=== PATIENT | male | born 1985 | race African-American/Black ===

== ENCOUNTER 2022-11-01 10:00 | Emergency (ER) | payer OTHER, SELFPAY ==
--- NOTE | ~2022-11-01 | XR_ITS ---
XR chest 2V 11/01/2022 10:43 Indication: Shortness of breath with rapid heart rate Procedure: 2 view chest Comparison: No prior studies for comparison. Findings: There is bilateral perihilar and right basilar airspace disease. Small right pleural effusi on. Cardiomegaly. No pneumothorax. No acute osseous abnormality. Impression: 1: Bilateral perihilar and right basilar airspace disease may represent pneumonia or edema. 2: Cardiomegaly. 3: Right pleural effusion. Reviewed, dictated and finalized at location A. OR SOFTWARE DEVELOPER Impression: 1: Bilateral perihilar and right basilar airspace disease may represent pneumon ia or edema. 2: Cardiomegaly. 3: Right pleural effusion.
--- NOTE | 2022-11-01 10:07 | ED.GENADULT ---
HPI - General Adult General Chief complaint: Shortness of Breath/Dyspnea Stated complaint: sob Time Seen by Provider: 11/01/22 10:07 Source: patient Mode of arrival: ambulatory Limitations: no limitations History of Present Illness HPI narrative: 36-year-old male patient presents to the [facility] with complaints of shortness of breath for the past 2 weeks. Patient states that last weekend he was seen in the ER and was early and was told that he had some fluid on his lungs and was given some furosemide to help get the fluid off. Patient was referred to his primary doctor for follow-up. Patient states he has never had any history with blood pressure. Patient states he has always been borderline but never diagnosed with high blood pressure. Patient currently does not have a primary care physician. 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 Patient denies any fevers, body aches, chills or any flu-like symptoms. Patient states he was a smoker and quit in July of 2022. Patient denies any swelling to the extremities that he is aware of. Patient denies any chest pain at this time. Related Data Home Medications Medication Instructions Recorded Confirmed furosemide 20 mg tablet 20 mg PO DAILY 11/01/22 11/01/22 Allergies Allergy/AdvReac Type Severity Reaction Status Date / Time No Known Allergies Allergy Verified 11/01/22 10:37 Review of Systems Review of Systems: CONSTITUTIONAL: Denies fever, chills, or sweats. EYES: Denies visual changes, redness, or discharge. ENT: Denies rhinorrhea, congestion, sore throat, or otalgia. CARDIOVASCULAR: Denies chest pain, palpitations, or edema. RESPIRATORY: Denies cough , positive dyspnea. GASTROINTESTINAL: Denies abdominal pain, nausea, vomiting, or diarrhea. GENITOURINARY: Denies dysuria or hematuria. SKIN: Denies rash or itching. MUSCULOSKELETAL: Denies back pain, joint pain, or myalgia. NEUROLOGIC: Denies headache, numbness, or weakness. PSYCHIATRIC: Denies anxiety or depression. PMFSH Comments At the time of my signature I agree with nursing past medical history, surgical, social, and family history. There is no relevant family history pertinent to the presenting complaint. Exam Narrative: GENERAL: Well-appearing, well-nourished, and in no acute distress. HEAD: Normocephalic, atraumatic. EYES: PERRLA and EOMI. ENT: Nares with erythema and edema noted bilateral, no rhinorrhea or epistaxis. Mucous membranes moist. posterior pharynx with no erythema, tonsillar edema, exudates or lesions present. Bilateral TMs are clear no erythema or foreign bodies the canal. NECK: Supple. No lymphadenopathy CHEST: Clear to auscultation. No respiratory distress. HEART: Regular rate and rhythm. No murmur heard. Slightly muffled heart tones noted. Normal peripheral pulses. ABDOMEN: Soft, nontender, nondistended, normal active bowel sounds. EXTREMITIES: Normal range of motion. 1+ pitting edema noted to bilateral lower extremities. SKIN: Warm, dry, no rash. NEURO: No focal deficits. Alert and oriented x3. Course Course Level of Care: Express Care Visit Reevaluation(s) Reevaluation #1: Discussed with patient that based on his x-ray results as well as his EKG and physical exam , I am concerned he might have the beginnings of congestive heart failure which could be causing the shortness of breath. I would advise that patient be sent to the emergency department for further evaluation including blood work on possible IV medications to help with his symptoms. Patient is in agreement with this plan of care. Will call over to enter seen in the ER to transfer patient therapy. Offered to send patient by EMS however he has declined and states he will drive himself. Given the fact the patient does not have any acute chest pain and his EKG does not show any acute coronary artery issues I think that is okay to let him drive at this time. Date: 11/01/22 Time: 11:04 Vital Signs Vi
--- NOTE | 2022-11-01 10:31 | ECG_ITS ---
Measurements Intervals [place] Rate: 106 P: 58 UT: 144 QRS: 14 QRSD: 92 T: 77 QT: 351 QTc: 466 Interpretive Statements SINUS TACHYCARDIA POSSIBLE LEFT ATRIAL ENLARGEMENT DELAYED PRECORDIAL R/S TRANSITION NONSPECIFIC T-WAVE ABNORMALITY- DIFFUSE LEADS BORDERLINE ECG NO PREVIOUS ECG AVAILABLE FOR COMPARISON Electronically Signed On 11-01-2022 11:30:39 BRICKLAYER HELPER by Bogdan Chowdhury D.O.
[2022-11-01 10:32] VITALS: BP 149/101; PULSE 120; RESP 18; TEMP 36.5; O2SAT 98
== END 2022-11-01 11:00 | disposition short-term general hospital (02) ==
PROVIDERS: Emergency Provider Nurse Practitioner Family; PCP Family Medicine
DX: R06.02 Shortness of breath (principal); R60.0 Localized edema; I51.7 Cardiomegaly; J90 Pleural effusion, not elsewhere classified; Z87.891 Personal history of nicotine dependence
CPT/HCPCS: 71046; 93005; 99213; G0463

== ENCOUNTER 2022-11-01 11:36 | Inpatient (IN) | payer OTHER, SELFPAY ==
[2022-11-01] VITALS (28 sets, daily range): BP systolic 129–186; BP diastolic 82–139; PULSE 101–124; RESP 18–28; TEMP 36.3–36.8; O2SAT 96–99
--- NOTE | ~2022-11-01 | US_ITS ---
EXAMINATION: US right upper quadrant DATE: 11/05/2022 14:22 INDICATION: Elevated liver function tests TECHNIQUE: Multiple grayscale and Doppler ultrasound images of the abdomen were obtained. COMPARISON: None available FINDINGS: Bowel gas obscures visualization of the pancreas. The visualized portions of the pancreas a re unremarkable. The liver is normal with normal echogenicity and echotexture. No surface nodularity. Normal hepatopetal flow in the main portal vein. The gallbladder is normal with no abnormal wall thi ckening, pericholecystic fluid or stones. The normal common bile duct measures 6 mm. There was no son ographic Kaur sign. IMPRESSION: 1. Normal sonographic study of the gallbladder. Reviewed, dictated and finalized at location B. FORM MATERIAL HANDLING SUPERVISOR
--- NOTE | ~2022-11-01 | XR_ITS ---
XR chest 2V 11/01/2022 11:59 Indication: Shortness of breath Procedure: PA and lateral views of the chest Comparison: 11/01/2022 Findings: Persistent bilateral perihilar and right basilar airspace disease without significant wren e. Possible small right effusion. Cardiomegaly. No pneumothorax. Impression: 1: Unchanged bilateral airspace disease which may represent edema or pneumonia. Reviewed, dictated and finalized at location A. ER UP Impression: 1: Unchanged bilateral airspace disease which may represent edema or pneumonia.
--- NOTE | ~2022-11-01 | CT_ITS ---
EXAMINATION: CTA chest PE protocol DATE: 11/01/2022 15:02 INDICATION: sob, elevated dime TECHNIQUE: Computed tomography angiography (CTA) of the chest was performed with 100 mL Omnipaque-350 intravenous contrast timed to evaluate the pulmonary arteries. Coronal maximum intensity projection 3D-reconstructions were created by the technologist. The dose-length product (DLP) was 783.39 mGy-cm. Automated exposure control and iterative reconstruction technique were employed. COMPARISON: None. FINDINGS: Lung parenchyma and airways: Patchy areas of groundglass opacity and peripheral reticulation with int ralobular septal thickening. Bibasilar subsegmental atelectasis. Pleura: Moderate right and small left pleural fluid collections. Thoracic inlet, axillae and chest wall: Bilateral gynecomastia.. Thoracic aorta: Normal. Mediastinum: Mediastinal lymphadenopathy. Small hiatal hernia. Heart and pericardium: Cardiomegaly. Coronary artery calcifications: Absent. Upper abdomen: Suggestion of mild wall thickening/inflammatory change of the gallbladder wall. Bones: No acute osseous finding. Pulmonary arteries: Study quality: Adequate. No pulmonary emboli detected. IMPRESSION: No CT evidence of acute pulmonary embolus. Pulmonary edema. Moderate right and small left pleural eff usions. Cardiomegaly. Suggestion of gallbladder wall thickening/inflammatory change, correlate with s ymptoms of right upper quadrant pain and biliary labs Reviewed, dictated and finalized at location K. CANDY SPINNER IMPRESSION: No CT evidence of acute pulmonary embolus. Pulmonary edema. Moderate right and small left pleural effusions. Cardiomegaly. Suggestion of gallbladder wall thic kening/inflammatory change, correlate with symptoms of right upper quadrant suzy n and biliary labs
--- NOTE | ~2022-11-01 | US_ITS ---
EXAMINATION: US venous doppler [facility] DATE: 11/02/2022 18:14 INDICATION: Edema . TECHNIQUE: Grayscale images without and with compression and Doppler images of the bilateral lower ex tremity veins were obtained. COMPARISON: None FINDINGS: The right common femoral vein, profunda (deep) femoral vein, femoral vein, popliteal vein, peroneal v ein, posterior tibial veins, gastrocnemius vein, and greater saphenous vein are patent. The left common femoral vein, profunda femoral vein, femoral vein, popliteal vein, peroneal vein, pos terior tibial veins, gastrocnemius vein, and greater saphenous vein are patent. IMPRESSION: 1. Patent bilateral lower extremity veins. No evidence of deep venous thrombosis. Reviewed, dictated and finalized at location K. COVERING CONTRACTOR IMPRESSION: 1. Patent bilateral lower extremity veins. No evidence of deep venous thrombos is.
--- NOTE | 2022-11-01 11:39 | ECG_ITS ---
Measurements Intervals [place] Rate: 109 P: 59 TX: 163 QRS: 17 QRSD: 89 T: 51 QT: 337 QTc: 454 Interpretive Statements SINUS TACHYCARDIA POSSIBLE LEFT ATRIAL ENLARGEMENT DELAYED PRECORDIAL R/S TRANSITION NONSPECIFIC T-WAVE ABNORMALITY- DIFFUSE LEADS ABNORMAL ECG COMPARED TO ECG 11/01/2022 10:29:05 NO SIGNIFICANT CHANGES Electronically Signed On 11-01-2022 16:34:51 ROOF BOLTING COAL MINER by Bogdan Chowdhury D.O.
[2022-11-01 11:58] LABS: Basophils Absolute Auto 0.1 K/mm3 (0.0-0.1); Basophils Percent Auto 0.8 % (0.2-1.2); Eosinophils Absolute Auto 0.1 K/mm3 (0-0.3); Eosinophils Percent Auto 1.1 % (0-4.4); Hematocrit 44.5 % (42.0-52.0); Hemoglobin 14.7 g/dL (14.0-18.0); Immature Granulocyte Absolute 0.03 K/mm3 (0.00-0.031); Immature Granulocyte Percent A 0.5 % (0-0.5); Lymphocytes Absolute Auto 2.28 K/mm3 (0.9-3.2); Lymphocytes Percent Auto 36.7 % (18.3-44.2); Mean Corpuscular Hemoglobin 30.9 pg (26-34); Mean Corpuscular Volume 93.7 fl (80-100); Mean Platelet Volume 9.8 fl (7.4-10.4); Monocytes Absolute Auto 0.5 K/mm3 (0.1-0.6); Monocytes Percent Auto 8.4 % (2.6-8.5); Neutrophils Absolute Auto 3.3 K/mm3 (1.3-6.7); Neutrophils Percent Auto 52.5 % (45.5-73.1); Platelet Count Result 270 k/mm3 (150-375); Red Blood Count 4.75 M/mm3 (4.6-6.20); Red Cell Distribution Width 14.2 % (11.5-14.5); White Blood Count 6.2 K/mm3 (4.5-10.0)
[2022-11-01 12:10] LABS: INR 1.2; Prothrombin Time 14.3 Seconds (11.1-14.7)
[2022-11-01 12:12] LABS: Partial Thromboplastin Time 25.6 SECONDS (22.3-36.8)
[2022-11-01 12:13] LABS: Alanine Aminotransferase 231 U/L (6-50); Albumin Level 3.7 g/dL (3.5-5.1); Alkaline Phosphatase 50 U/L (38-126); Anion Gap 6 mmol/L (8-16); Aspartate Amino Transferase 89 U/L (17-59); Blood Urea Nitrogen 12 mg/dL (9-20); Calcium 8.1 mg/dL (8.4-10.2); Carbon Dioxide 26 mmol/L (22-30); Chloride 105 mmol/L (98-107); Estimated CRCL calculation 87 ml/min; Estimated Glomerular Filt Rate > 60; Glucose 107 mg/dL (65-110); Potassium 4.3 mmol/L (3.4-5.0); Sodium 137 mmol/L (137-145)
[2022-11-01 12:22] LABS: NT Pro B Type Natriuretic Pept 4070 pg/mL (5-100); Troponin I < 0.012 ng/mL (0.000-0.034)
[2022-11-01 13:49] LABS: D Dimer 1.49 ug/mL (<0.48)
[2022-11-01] MEDS: FUROSEMIDE INJ 40 MG/4 ML VIAL IV PUSH ×2 (13:59→20:38)
--- NOTE | 2022-11-01 14:11 | ED.SOB ---
HPI - SOB/Dyspnea General Chief Complaint: Shortness of Breath/Dyspnea Stated Complaint: SOB Time Seen by Provider: 11/01/22 13:23 Source: patient and RN notes reviewed Mode of arrival: ambulatory Limitations: no limitations History of Present Illness HPI Narrative: This is a 36 year old male who presents for evaluation of shortness of breath. He states approximately 2 weeks ago he had cold symptoms with congestion, cough and those symptoms resolved after 1-2 days. He developed shortness of breath with exertion shortly after. She also reports abdominal bloating, orthopnea. 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 He was started on lasix and told to follow up . He states he is not urinating much and he reports that he is continuing to have shortness of breath. He denies fever, chills, leg swelling chest pain. He denies any cardiac or lung history. He does not have primary care provider. Related Data Home Medications Medication Instructions Recorded Confirmed furosemide 20 mg tablet 20 mg PO DAILY 11/01/22 11/01/22 Allergies Allergy/AdvReac Type Severity Reaction Status Date / Time No Known Allergies Allergy Verified 11/01/22 10:37 Review of Systems Constitutional: Constitutional: Denies weakness ENT: Reports nasal congestion Cardiovascular: Cardiovascular: Denies syncope, Denies rapid heart rate, Denies irregular heart rhythm, Denies leg edema and Reports dyspnea Respiratory: Respiratory: Reports chest congestion, Reports cough, Denies hemoptysis, Denies excessive phlegm production and Reports dyspnea Gastrointestinal: Gastrointestinal: Denies abdominal pain, Denies hematochezia, Denies diarrhea and Denies vomiting Genitourinary: Genitourinary: Denies hematuria, Denies dysuria, Denies penile discharge and Denies testicular pain Musculoskeletal: Musculoskeletal: Denies joint swelling, Denies loss of height and Denies muscle weakness Neurologic: Denies syncope, Denies focal weakness and Denies weakness PMFSH Past Medical History Medical History (Updated 11/01/22 @ 18:39 by Cecelia Vences MD) Patient denies medical problems Surgical History Surgical History (Updated 11/01/22 @ 14:16 by Cecelia Vences MD) No pertinent past surgical history Social History Social History (Updated 11/01/22 @ 14:16 by Cecelia Vences MD) Smoking status: Former smoker Alcohol intake: current Alcohol use details: socially Substance use: former Substance use type: marijuana Exam Const: General: alert Orientation/consciousness: patient oriented x3 Limitations: no limitations HENMT: Head: normal to inspection Eyes: EOM: EOMs intact bilaterally Chest: Chest palpation & inspection: normal inspection of the chest Resp: Auscultation: clear to auscultation bilaterally and breath sounds present Cardio: Rate: tachycardic Rhythm: regular rhythm Heart sounds: no murmurs GI: Inspection: distended GI Palp: Yes Soft to palpation, No Tenderness to palpation present (GI), No Guarding due to palpation present (GI) and No Rigid due to palpation Auscultation: normal bowel sounds Skin: General skin exam: normal color Rashes: no rashes Wounds: no wounds Neuro: General: patient oriented x3, moves all extremities and CN's II-XI intact bilaterally Cranial nerves: Yes Nystagmus not present Speech: normal speech Gait exam (Neuro): Normal gait present Extrem: General: normal to inspection Psych: Mental Status: mental status grossly normal Affect: normal affect Attitude: cooperative Course Course Emergency Course: PAtient presented to ER for new onset CHF for shortness of breath. LABs, EKG And chest xray done to assess for edema, MN, PE, electrolyte abnormalities. [place] so PE was a concern so CTA done due to elevated d dimer. IT was negative for PE. HE was started on lasix in ER . He is diuresing well. Consultations Consultat
[2022-11-01 14:27] LABS: Influenza A QL RT-PCR Negative (Negative); Influenza B QL RT-PCR Negative (Negative); SARS-CoV-2 RNA PCR Negative
--- NOTE | 2022-11-01 18:16 | ECG_ITS ---
Measurements Intervals [place] Rate: 105 P: 59 MT: 161 QRS: 20 QRSD: 106 T: 75 QT: 370 QTc: 490 Interpretive Statements SINUS TACHYCARDIA LEFT ATRIAL ENLARGEMENT BORDERLINE T WAVE ABNORMALITY- DIFFUSE LEADS BASELINE ARTIFACT- V3 BORDERLINE ECG COMPARED TO ECG 11/01/2022 11:48:40 NO SIGNIFICANT CHANGES Electronically Signed On 11-02-2022 7:59:53 SUPERVISOR FRAME SAMPLE AND PATTERN by Bogdan Chowdhury D.O.
--- NOTE | 2022-11-01 18:22 | PC.NURSE ---
when pt getting out of bed to get in the wc pt reported sudden Cramp in upper left ribs. Pt describes pain as cramping. EKG completed and shown to ERP, pt then reported the cramp resolved. Pt states I've had that before. EKG sent to floor with paper work
--- NOTE | 2022-11-01 18:54 | ADMGEN ---
This patient, Regan Corrales, was admitted to Medical Room 248-01. Patient/family oriented to hospital policies and general routines including ID bracelet, bed and alarms, visiting hours, pain management, procedures, bathroom and other care routines, personal items, smoking policy, room service/diet, and visiting hours. Information on how to activate the Rapid Response Team has been discussed. Patient/Family are encouraged to report perceived risks to care and to ask questions if they do not understand what they are told or what they should do.
--- NOTE | 2022-11-01 22:26 | PM.IMHP ---
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 The patient has been complaining of shortness of breath for at least 2 weeks now. He stated that he went to an emergency room somewhere in [facility] approximately 1 week ago and was given IV Lasix. He stated that he was told that his lungs were full of fluid the patient has been taking the Lasix as prescribed the patient stated he has not been urinating very much and still continues to feel short of breath. He has some mild edema to his lower extremities. He has no history of any lung or cardiac issues. He does not have a primary care doctor. The patient stated that when he went to the ER in [facility] 1 week ago he was not admitted but was given a prescription for Lasix and sent on his way. He has not had any follow-up since. Chest CTA was read as the followingNo CT evidence of acute pulmonary embolus. Pulmonary edema. Moderate right and small left pleural effusions. Cardiomegaly. Suggestion of gallbladder wall thickening/inflammatory change, correlate with symptoms of right upper quadrant pain and biliary labs. Chest x-ray from [facility] that was taken earlier today was read as unchanged bilateral airspace disease which could represent edema or pneumonia. Chest x-ray from today1: Bilateral perihilar and right basilar airspace disease may represent pneumonia or edema. 2: Cardiomegaly. 3: Right pleural effusion. The patient initially went to the [facility] and was told to go to the emergency room. D-dimer 1.49. Liver enzymes are elevated BNP 4070. The patient was found to be negative for influenza A/B and COVID. The patient was given IV Lasix in the emergency room and stated he has been urinating frequently. The patient stated some relief since he has gotten IV Lasix. The patient is being admitted to observation status Review of Systems Review of Systems: See HPI All systems reviewed & are unremarkable except as noted in HPI and below Constitutional: Constitutional: Reports as per HPI and Reports no additional constitutional complaints Eyes: Eyes: Reports as per HPI and Reports no additional eye complaints ENT: Reports system reviewed and no additional complaints, except as documented and Reports Normal hearing present Cardiovascular: Cardiovascular: Reports no additional cardiovascular complaints Respiratory: Respiratory: Reports no additional respiratory complaints and Reports no additional respiratory complaints Gastrointestinal: Gastrointestinal: Reports as per HPI and Reports no additional gastrointestinal complaints Musculoskeletal: Musculoskeletal: Reports no additional musculoskeletal complaints Integumentary/Breasts: Skin/Breast: Reports system reviewed and no additional complaints, except as docu and Reports as per HPI Neurologic: Reports system reviewed and no additional complaints, except as documented, Reports as per HPI and Reports Normal hearing present Psychiatric: Psychiatric: Reports no additional psychiatric complaints and Reports as per HPI Endocrine: Endocrine: Reports no additional endocrine complaints Hematologic/Lymphatic: Hematologic/Lymphatic: Reports no additional hematologic/lymphatic complaints Allergic/Immunologic: Allergic/Immunologic: Reports no additional allergic/immunologic complaints [facility] Past Medical History Medical History (Updated 11/01/22 @ 18:39 by Cecelia Vences MD) Patient denies medical problems Surgical History Surgical History (Updated 11/01/22 @ 23:50 by Amina Hinson NP) [place] teeth extracted Family History Family History (Updated 11/01/22 @ 23:51 by Amina Hinson NP) Mother Diabetes mellitus Social History Social History (Updated 11/01/22 @ 23:52 by Amina Hinson NP) Social History: The patient lives with a significant other. The patient has a total 6 ch
[2022-11-02] VITALS (11 sets, daily range): BP systolic 113–137; BP diastolic 77–90; PULSE 59–120; RESP 16–20; TEMP 36.1–37.1; O2SAT 98–100
[2022-11-02 05:33] LABS: Basophils Absolute Auto 0.1 K/mm3 (0.0-0.1); Basophils Percent Auto 0.8 % (0.2-1.2); Eosinophils Absolute Auto 0.1 K/mm3 (0-0.3); Eosinophils Percent Auto 1.9 % (0-4.4); Hematocrit 42.3 % (42.0-52.0); Hemoglobin 14.2 g/dL (14.0-18.0); Immature Granulocyte Absolute 0.01 K/mm3 (0.00-0.031); Immature Granulocyte Percent A 0.2 % (0-0.5); Lymphocytes Absolute Auto 2.16 K/mm3 (0.9-3.2); Mean Corpuscular HGB Conc 33.6 g/dl (32-36); Mean Corpuscular Volume 92.4 fl (80-100); Monocytes Absolute Auto 0.5 K/mm3 (0.1-0.6); Monocytes Percent Auto 8.6 % (2.6-8.5); Neutrophils Absolute Auto 3.3 K/mm3 (1.3-6.7); Neutrophils Percent Auto 53.5 % (45.5-73.1); Platelet Count Result 260 k/mm3 (150-375); Red Blood Count 4.58 M/mm3 (4.6-6.20); Red Cell Distribution Width 14.3 % (11.5-14.5); White Blood Count 6.2 K/mm3 (4.5-10.0)
[2022-11-02 05:52] LABS: Alanine Aminotransferase 217 U/L (6-50); Albumin Level 3.6 g/dL (3.5-5.1); Alkaline Phosphatase 45 U/L (38-126); Anion Gap 5 mmol/L (8-16); Aspartate Amino Transferase 83 U/L (17-59); Bilirubin,Total 0.9 mg/dL (0.2-1.3); Blood Urea Nitrogen 12 mg/dL (9-20); Calcium 7.8 mg/dL (8.4-10.2); Carbon Dioxide 28 mmol/L (22-30); Chloride 99 mmol/L (98-107); Estimated CRCL calculation 94 ml/min; Estimated Glomerular Filt Rate > 60; Glucose 99 mg/dL (65-110); Potassium 3.6 mmol/L (3.4-5.0); Sodium 132 mmol/L (137-145)
[2022-11-02] MEDS: FUROSEMIDE INJ 40 MG/4 ML VIAL IV PUSH ×2 (10:05→21:21)
--- NOTE | 2022-11-02 11:29 | PM.IMPN ---
Progress Note: A&P Assessment and Plan (1) Congestive heart failure: Qualifiers: Heart failure chronicity: acute Heart failure type: unspecified Qualified Code(s): I50.9 - Heart failure, unspecified Code(s): I50.9 - Heart failure, unspecified Status: Acute Assessment and Plan: BNP 4070 Continue Lasix Daily weights Monitor I&O Cardiology consulted awaiting recommendations thank you for the care this patient Echo pending (2) Elevated blood pressure reading: Code(s): R03.0 - Elevated blood-pressure reading, without diagnosis of hypertension Status: Acute Assessment and Plan: Elevated blood pressure reading Cardiology consulting awaiting recommendation thank you for the care this patient. Patient will more than likely need to start on antihypertensive medication (3) Elevated liver enzymes: Code(s): R74.8 - Abnormal levels of other serum enzymes Status: Acute Assessment and Plan: Will trend Panel in the a.m. Subjective Date/time seen: 11/02/22 11:29 Interval history: Patient notes that his breathing has improved since admission. He is still experiencing some SOB. Patient educated on CHF and management of his chronic disease. The patient denies CP, palpitation, extremity numbness, lightheadedness, dizziness, constipation, diarrhea, chills, or fever. Objective Data Vital Signs Vital Signs: Vital Signs - 24 hr 11/01/22 11:40 11/01/22 12:38 11/01/22 12:45 Temperature 98.0 F Pulse Rate 116 H 107 H 103 H Respiratory Rate 20 20 20 Blood Pressure 141/82 H Pulse Oximetry 96 Oxygen Delivery Room Air 11/01/22 13:02 11/01/22 13:21 11/01/22 13:30 Temperature Pulse Rate 124 H 109 H 111 H Respiratory Rate 18 18 Blood Pressure 138/105 H Pulse Oximetry 98 Oxygen Delivery 11/01/22 13:32 11/01/22 13:45 11/01/22 13:46 Temperature 98.0 F Pulse Rate 114 H 106 H 106 H Respiratory Rate 18 Blood Pressure 136/94 H Pulse Oximetry 97 Oxygen Delivery 11/01/22 14:02 11/01/22 14:30 11/01/22 14:31 Temperature 97.8 F Pulse Rate 108 H 106 H 107 H Respiratory Rate 18 Blood Pressure 129/102 H Pulse Oximetry 97 Oxygen Delivery 11/01/22 13:30 11/01/22 15:57 11/01/22 16:00 Temperature Pulse Rate 115 H 109 H Respiratory Rate Blood Pressure 150/117 H Pulse Oximetry Oxygen Delivery Room Air 11/01/22 16:01 11/01/22 16:15 11/01/22 16:16 Temperature 98.2 F Pulse Rate 111 H 112 H 111 H Respiratory Rate 18 Blood Pressure 150/110 H 152/90 H Pulse Oximetry Oxygen Delivery 11/01/22 16:47 11/01/22 17:00 11/01/22 17:01 Temperature 98.0 F Pulse Rate 111 H 112 H 103 H Respiratory Rate 18 Blood Pressure 162/102 H Pulse Oximetry Oxygen Delivery 11/01/22 17:15 11/01/22 17:30 11/01/22 17:31 Temperature 98.2 F Pulse Rate 102 H 101 H 105 H Respiratory Rate 18 Blood Pressure 186/139 H Pulse Oximetry Oxygen Delivery 11/01/22 17:45 11/01/22 18:00 11/01/22 18:34 Temperature 97.4 F L Pulse Rate 106 H 111 H 111 H Respiratory Rate 28 H Blood Pressure 142/98 H Pulse Oximetry 99 Oxygen Delivery 11/01/22 20:15 11/01/22 20:00 11/02/22 00:00 Temperature 98.2 F Pulse Rate 118 H 116 H 102 H Respiratory Rate 20 Blood Pressure 144/92 H Pulse Oximetry 97 Oxygen Delivery 11/02/22 04:00 11/02/22 05:09 Temperature 98 F Pulse Rate 105 H 104 H Respiratory Rate 20 Blood Pressure 137/90 Pulse Oximetry 98 Oxygen Delivery Intake/Output Intake/Output: Intake & Output 10/30/22 10/31/22 11/01/22 11/02/22 23:59 23:59 23:59 23:59 Intake Total 930 Output Total 1900 1 Balance -1900 929 Meds/Results Medications: Active Medications Generic Name Dose Route Start Last Admin Trade Name Changq PRN Reason Stop Dose Admin Furosemide 40 mg 11/01/22 21:00 11/02/22 10:05 Furosemide Inj 40 Mg/4 Ml Vi
--- NOTE | 2022-11-02 11:50 | PM.CNCAR ---
Assessment and Plan Assessment and plan (1) Congestive heart failure: Qualifiers: Heart failure chronicity: acute Heart failure type: unspecified Qualified Code(s): I50.9 - Heart failure, unspecified Code(s): I50.9 - Heart failure, unspecified Status: Acute Assessment and Plan: 36-year-old male with no known prior cardiac history; history of tobacco abuse. Patient admitted to hospital with about 2 week history of worsening shortness of breath associated with lower extremity swelling, PND and orthopnea. EKG shows sinus tachycardia, no acute ST segment abnormality. Trop x1 negative. NTproBNP is elevated. Chest x-ray and CT scan shows pulmonary vascular congestion and pleural effusion. Clinical presentation consistent with congestive heart failure. -echocardiogram with Doppler is pending to assess LV systolic and diastolic function. -continue IV diuretics for now, may switch to p.o. furosemide tomorrow. Monitor electrolytes and renal function. -start carvedilol, losartan and spironolactone. May switch losartan to ARNI and add SGLT2 inhibitor if echo shows systolic/diastolic dysfunction. -patient is a electric truck operator. He was advised to establish medical care in his home town after discharge from the hospital. He verbalized understanding. (2) Elevated blood pressure reading: Code(s): R03.0 - Elevated blood-pressure reading, without diagnosis of hypertension Status: Acute Assessment and Plan: Blood pressure elevated at presentation, likely has previously unknown and untreated hypertension. Management as above. History of Present Illness History of Present Illness Consult date/time: 11/02/22 11:50 Reason For Visit: New Onset CHF Narrative: DATE OF CONSULT: 11/02/2021 REASON FOR CONSULT: New onset congestive heart failure REQUESTING PHYSICIAN:Amina Hinson NP CHIEF COMPLAINT: Shortness of breath HPI: 36-year-old male with no known prior cardiac history; history of tobacco abuse. Patient admitted to [facility] on 11/01/2022 with complaints of shortness of breath. Patient is a electric truck operator and lives in [place]. He states that he has been experiencing worsening shortness of breath for about 2 weeks associated with lower extremity swelling. Prior to that, he had cough and congestion for couple of days followed by shortness of breath. His symptoms are associated with PND and orthopnea. Denies chest pain, palpitation, dizziness or syncope. He denies any known prior cardiac history including clinical PA, angina, heart failure or any known arrhythmias. He states that he was recently given furosemide at an urgent care. Patient does not have primary care physician. His blood pressure at presentation was elevated at 149/101. He is not aware of diagnosis of hypertension in the past. EKG on my personal evaluation showed sinus tachycardia, heart rate 106 beats per minute, no specific ST-T abnormality. Chest x-ray showed Bilateral perihilar and right basilar airspace disease may represent pneumonia or edema, Cardiomegaly, right pleural effusion. CT chest among other findings showed pulmonary edema, moderate right and small left pleural effusions, cardiomegaly and no evidence of acute pulmonary embolus. Troponin x1 negative. NT proBNP elevated at 4070. Review of Systems Review of Systems: General: Negative for fever, chills, fatigue Psychological: Negative for anxiety, depression Ophthalmic: negative for loss of vision ENT: Negative for epistaxis, headaches Allergy and immunology: Negative for hives, nasal congestion Hematologic and lymphatic: Negative for overt bleeding problems Endocrine: Negative for hot flashes, palpitations Respiratory: Positive for occasional cough Cardiovascular: Negative for chest pain, positive for shortness of breath, lower extremity swelling, PND and orthopnea Gastrointestinal: Negative for abdominal pain, nausea, vomiting, hematochezia Musculos
[2022-11-02] MEDS: ENOXAPARIN 40 MG/0.4 ML SYRINGE SUB-Q (13:41)
[2022-11-02] MEDS: ALBUTEROL SULFATE (*SP) AEROSOL 1 PUFF 2 PUFF INHALATION ×2 (14:48→20:36)
[2022-11-02] MEDS: carvediloL 3.125 MG TABLET PO (21:21)
[2022-11-03] VITALS (14 sets, daily range): BP systolic 109–121; BP diastolic 74–83; PULSE 88–111; RESP 18–20; TEMP 36.6–36.7; O2SAT 96–98
[2022-11-03 05:49] LABS: Hematocrit 43.4 % (42.0-52.0); Hemoglobin 14.7 g/dL (14.0-18.0); Mean Corpuscular HGB Conc 33.9 g/dl (32-36); Mean Corpuscular Hemoglobin 31.1 pg (26-34); Mean Corpuscular Volume 91.9 fl (80-100); Mean Platelet Volume 9.7 fl (7.4-10.4); Platelet Count Result 267 k/mm3 (150-375); Red Blood Count 4.72 M/mm3 (4.6-6.20); Red Cell Distribution Width 13.9 % (11.5-14.5); White Blood Count 5.9 K/mm3 (4.5-10.0)
[2022-11-03 05:56] LABS: Alanine Aminotransferase 201 U/L (6-50); Albumin Level 3.6 g/dL (3.5-5.1); Alkaline Phosphatase 51 U/L (38-126); Anion Gap 5 mmol/L (8-16); Aspartate Amino Transferase 68 U/L (17-59); Blood Urea Nitrogen 13 mg/dL (9-20); Carbon Dioxide 30 mmol/L (22-30); Chloride 99 mmol/L (98-107); Estimated CRCL calculation 87 ml/min; Estimated Glomerular Filt Rate > 60; Glucose 100 mg/dL (65-110); Magnesium 2.3 mg/dL (1.6-2.3); Potassium 3.8 mmol/L (3.4-5.0); Sodium 134 mmol/L (137-145)
--- NOTE | 2022-11-03 06:00 | ECHO_ITS ---
Patient Info Name: Regan Corrales Age: 36 years : 1985 Gender: Male Ht: 69 in Wt: 260 lbs BSA: 2.45 m2 HR: 107 bpm BP: 109 / 74 mmHg Heart Rhythm: Tachycardia Exam Date: 11/03/2022 9:20 AM Exam Location: [facility] Patient Status: Inpatient Admit Date: 11/02/2022 Staff Ordering Physician: Cecelia Vences MD Air Traffic Instructor: Chi Kaur RDCS, RT Attending Provider: Beverley Spivey Referring Physician: Vangie NICK; Exam Type: CA echo doppler color flow Study Info Indications I50.9 - Heart failure, unspecified Complete two-dimensional, color flow and Doppler transthoracic echocardiogram is performed. Strain analysis performed. Summary 1. Complete two-dimensional, color flow and Doppler transthoracic echocardiogram is performed. 2. Strain analysis performed. 3. Left ventricular chamber dimension is mildly enlarged. 4. Left ventricular systolic function is severely reduced, estimated at 25-30%. 5. There is mildly increased left ventricular wall thickness. 6. The left ventricular diastolic function is abnormal. 7. Global longitudinal strain is abnormal at -10 %. 8. Right ventricular systolic function is reduced. 9. Left atrial chamber dimension is moderately enlarged. 10. There is mild to moderate mitral valve regurgitation. 11. There is mild tricuspid valve regurgitation. 12. Moderate pulmonary hypertension, estimated pulmonary arterial systolic pressure is 45 mmHg. 13. There is mild pulmonic regurgitation. Left Ventricle Left ventricular chamber dimension is mildly enlarged. Left ventricular systolic function is severely reduced, estimated at 25-30%. There is mildly increased left ventricular wall thickness. The left ventricular diastolic function is abnormal. Global longitudinal strain is abnormal at -10 %. Right Ventricle Right ventricular chamber dimension is normal. Right ventricular systolic function is reduced. Left Atria Left atrial chamber dimension is moderately enlarged. Right Atria Right atrial chamber dimension is normal. Atrial Septum Intact interatrial septum visualized by color flow imaging. Aortic Valve The aortic valve is probable trileaflet. There is no aortic valve sclerosis. There is no aortic valve stenosis. There is trace aortic valve regurgitation. Pulmonic Valve The pulmonic valve is normal. There is no pulmonic valve stenosis. There is mild pulmonic regurgitation. Mitral Valve The mitral valve has thickened leaflets. There is no mitral valve stenosis. There is mild to moderate mitral valve regurgitation. Tricuspid Valve The tricuspid valve leaflets are normal. There is no significant tricuspid valve stenosis. There is mild tricuspid valve regurgitation. Moderate pulmonary hypertension, estimated pulmonary arterial systolic pressure is 45 mmHg. Pericardium/Pleural The pericardium appears normal. There is trivial pericardial effusion. Inferior Vena Cava Dilated inferior vena cava with <50% collapse upon inspiration consistent with elevated right atrial pressure, 15 mmHg. Aorta The aortic root size at the sinus of Valsalva is normal. The prox ascending aorta size is normal. Left Ventricular Outflow Tract Name Value Normal LVOT 2D
[2022-11-03] MEDS: SPIRONOLACTONE 25 MG TABLET PO (08:54)
[2022-11-03] MEDS: ENOXAPARIN 40 MG/0.4 ML SYRINGE SUB-Q (08:54)
[2022-11-03] MEDS: carvediloL 3.125 MG TABLET PO ×2 (08:54→20:44)
[2022-11-03] MEDS: FUROSEMIDE 40 MG TABLET PO ×2 (08:54→17:18)
[2022-11-03] MEDS: LOSARTAN POTASSIUM 25 MG TABLET PO (08:55)
[2022-11-03] MEDS: ALBUTEROL SULFATE (*SP) AEROSOL 1 PUFF 2 PUFF INHALATION ×3 (10:14→20:07)
--- NOTE | 2022-11-03 10:57 | PM.IMPN ---
Progress Note: A&P Assessment and Plan (1) Congestive heart failure: Qualifiers: Heart failure chronicity: acute Heart failure type: unspecified Qualified Code(s): I50.9 - Heart failure, unspecified Code(s): I50.9 - Heart failure, unspecified Status: Acute Assessment and Plan: BNP 4070 on admission Lasix switched to oral today dose 40 mg b.i.d.. Daily weights continued, weight today has decreased from 118 kg on November 01 to 116.6 kg today. Monitor I&O Cardiology is co-managing with medicine. Echo performed today. Results pending. (2) Elevated blood pressure reading: Code(s): R03.0 - Elevated blood-pressure reading, without diagnosis of hypertension Status: Acute Assessment and Plan: Overall blood pressures have improved. Most recent pressure today is 109/74. This is drastically improved from blood pressures as high as 186/139 on the day of admission As cardiology is also managing patient will follow their lead in outpatient blood pressure management. (3) Elevated liver enzymes: Code(s): R74.8 - Abnormal levels of other serum enzymes Status: Acute Assessment and Plan: Etiology unknown. Patient is asymptomatic and has no hyperbilirubinemia. Mild transaminitis is present, however it is trending downward. Will repeat labs in a.m.. Time Spent With Patient Time with patient: 15 - 25 minutes Subjective Date/time seen: 11/03/22 0800 This very pleasant male patient was examined at the bedside today in interval assessment. He reports that he feels that his breathing has continued to improve and he has possibly now at his baseline. He denies any chest pain, cough, weakness or swelling of the extremities. He has no new symptoms or complaints to endorse today. He has been evaluated by Cardiology and we are waiting results of his echocardiogram. In addition patient has Lasix was switched to to start today. Review of Systems Review of Systems: All systems reviewed & are unremarkable except as noted in HPI and below Exam Const: General: comfortable and no acute distress HENMT: Mouth: Yes moist mucous membranes Eyes: General: appearance normal, both eyes and all related structures Sclera: sclerae normal Pupils: Equal, round and reactive pupils present EOM: EOMs intact bilaterally Neck: Neck: supple and no JVD Resp: Effort & Inspection: normal respiratory effort Auscultation: clear to auscultation bilaterally Cardio: Rate: regular rate and tachycardic (Low 100s) Rhythm: regular rhythm Heart sounds: no gallops, no murmurs and no rubs GI: Inspection: non-distended GI Palp: Yes Soft to palpation, No Tenderness to palpation present (GI) and No Guarding due to palpation present (GI) Auscultation: normal bowel sounds Skin: General skin exam: normal color and no rashes or lesions noted Lesions: no lesions noted Rashes: no rashes noted Wounds: no wounds Neuro: General: gait normal Speech: normal speech Motor exam (neuro): 5/5 motor strength present throughout and Normal motor muscle tone present throughout Sensory Exam: normal sensation Extrem: General: normal to inspection, no edema and no pedal edema Other: Freely and equally moves all extremities well without deficit. Psych: Mental Status: mental status grossly normal Affect: normal affect Objective Data Vital Signs Vital Signs: Vital Signs - 24 hr 11/02/22 13:53 11/02/22 12:00 11/02/22 16:00 Temperature 97 F L Pulse Rate 107 H 111 H 115 H Respiratory Rate 16 Blood Pressure 113/90 Pulse Oximetry 100 Oxygen Delivery Oxygen Flow Rate 11/02/22 20:37 11/02/22 21:01 11/02/22 21:21 Temperature 98.7 F Pulse Rate 59 L 109 H 109 H Respiratory Rate 16 20 Blood Pressure 128/77 Pulse Oximetry 100 Oxygen Delivery Oxygen Flow Rate 11/02/22 20:00 11/02/22 20:00 11/03/22 00:00 Temperature Pulse Rate 109 H 120 H 100 Respiratory Rate Blo
--- NOTE | 2022-11-03 13:26 | PM.PNCARD ---
Progress Note: A&P Assessment and Plan (1) Congestive heart failure: Qualifiers: Heart failure chronicity: acute Heart failure type: unspecified Qualified Code(s): I50.9 - Heart failure, unspecified Code(s): I50.9 - Heart failure, unspecified Status: Acute Assessment and Plan: 36-year-old male with no known prior cardiac history; history of tobacco abuse. Patient admitted to hospital with about 2 week history of worsening shortness of breath associated with lower extremity swelling, PND and orthopnea. Clinical presentation consistent with congestive heart failure. -echocardiogram with Doppler is pending to assess LV systolic and diastolic function. -Shift to p.o. furosemide today. -start carvedilol, losartan and spironolactone. May switch losartan to ARNI and add SGLT2 inhibitor if echo shows systolic/diastolic dysfunction. (2) Elevated blood pressure reading: Code(s): R03.0 - Elevated blood-pressure reading, without diagnosis of hypertension Status: Acute Assessment and Plan: Blood pressure elevated at presentation, likely has previously unknown and untreated hypertension. Management as above. Subjective Date/time seen: 11/03/22 13:26 Cardiology follow up for CHF He's feeling much better today. Denies any shortness of breath. Swelling has improved. Exam Const: General: comfortable, no acute distress, alert and awake Orientation/consciousness: patient oriented x3 HENMT: Head: normal to inspection Eyes: General: appearance normal, both eyes and all related structures Pupils: Equal, round and reactive pupils present Neck: Neck: normal visual inspection, supple and no JVD Carotids: normal carotid upstroke Resp: Effort & Inspection: normal respiratory effort Auscultation: clear to auscultation bilaterally Cardio: Rate: regular rate Rhythm: regular rhythm Heart sounds: S1 normal heart sound present, S2 normal heart sound present and no murmurs GI: Auscultation: normal bowel sounds Skin: General skin exam: normal color Neuro: General: patient oriented x3 Cranial nerves: Yes Equal, round and reactive pupils present Extrem: General: normal to inspection Psych: Appearance: grossly normal Mental Status: mental status grossly normal Objective Data Vital Signs Vital Signs: Vital Signs - 24 hr 11/02/22 13:53 11/02/22 16:00 11/02/22 20:37 Temperature 36.1 C L Pulse Rate 107 H 115 H 59 L Respiratory Rate 16 16 Blood Pressure 113/90 Pulse Oximetry 100 Oxygen Delivery Oxygen Flow Rate 11/02/22 21:01 11/02/22 21:21 11/02/22 20:00 Temperature 37.1 C Pulse Rate 109 H 109 H 109 H Respiratory Rate 20 Blood Pressure 128/77 Pulse Oximetry 100 100 Oxygen Delivery Nasal Cannula Oxygen Flow Rate 2 11/02/22 20:00 11/03/22 00:00 11/03/22 04:00 Temperature Pulse Rate 120 H 100 88 Respiratory Rate Blood Pressure Pulse Oximetry Oxygen Delivery Oxygen Flow Rate 11/03/22 06:00 11/03/22 08:54 11/03/22 09:00 Temperature 36.6 C Pulse Rate 94 102 H Respiratory Rate 20 Blood Pressure 109/74 Pulse Oximetry 97 97 Oxygen Delivery Room Air Oxygen Flow Rate 11/03/22 08:00 11/03/22 10:15 Temperature Pulse Rate 109 H 102 H Respiratory Rate Blood Pressure Pulse Oximetry 96 Oxygen Delivery Room Air Oxygen Flow Rate Intake/Output Intake/Output: Intake & Output 10/31/22 11/01/22 11/02/22 11/03/22 23:59 23:59 23:59 23:59 Intake Total 2240 744 Output Total 1900 1351 400 Balance -1900 889 344 Meds/Results Medications: Active Medications Generic Name Dose Route Start Last Admin Trade Name Freq PRN Reason Stop Dose Admin Acetaminophen 650 mg 11/02/22 11:32 Acetaminophen 325 Mg Tablet PO Q4H PRN Headache Hydrocodone Bitart/Acetaminophen 1 tab 11/02/22 11:32 Hydrocodone/Acetaminophen (*Crx) 5-325 Mg Tablet PO Q6H PRN Pain Rated 7-1
[2022-11-04] VITALS (15 sets, daily range): BP systolic 113–119; BP diastolic 73–88; PULSE 91–106; RESP 16–21; TEMP 36.4–36.6; O2SAT 95–100
[2022-11-04 06:11] LABS: Basophils Absolute Auto 0.1 K/mm3 (0.0-0.1); Basophils Percent Auto 1.2 % (0.2-1.2); Eosinophils Absolute Auto 0.3 K/mm3 (0-0.3); Eosinophils Percent Auto 4.5 % (0-4.4); Hemoglobin 13.7 g/dL (14.0-18.0); Immature Granulocyte Absolute 0.01 K/mm3 (0.00-0.031); Immature Granulocyte Percent A 0.2 % (0-0.5); Lymphocytes Absolute Auto 2.89 K/mm3 (0.9-3.2); Lymphocytes Percent Auto 50.3 % (18.3-44.2); Mean Corpuscular HGB Conc 34.3 g/dl (32-36); Mean Corpuscular Hemoglobin 30.9 pg (26-34); Mean Corpuscular Volume 90.3 fl (80-100); Mean Platelet Volume 9.8 fl (7.4-10.4); Monocytes Absolute Auto 0.5 K/mm3 (0.1-0.6); Monocytes Percent Auto 8.3 % (2.6-8.5); Neutrophils Percent Auto 35.5 % (45.5-73.1); Platelet Count Result 263 k/mm3 (150-375); Red Blood Count 4.43 M/mm3 (4.6-6.20); Red Cell Distribution Width 13.6 % (11.5-14.5); White Blood Count 5.8 K/mm3 (4.5-10.0)
[2022-11-04 06:22] LABS: Alanine Aminotransferase 162 U/L (6-50); Albumin Level 3.4 g/dL (3.5-5.1); Alkaline Phosphatase 46 U/L (38-126); Anion Gap 4 mmol/L (8-16); Aspartate Amino Transferase 48 U/L (17-59); Bilirubin,Total 0.8 mg/dL (0.2-1.3); Blood Urea Nitrogen 12 mg/dL (9-20); Carbon Dioxide 29 mmol/L (22-30); Chloride 100 mmol/L (98-107); Estimated CRCL calculation 92 ml/min; Estimated Glomerular Filt Rate > 60; Glucose 90 mg/dL (65-110); Magnesium 2.4 mg/dL (1.6-2.3); Potassium 3.9 mmol/L (3.4-5.0); Sodium 133 mmol/L (137-145)
[2022-11-04] MEDS: carvediloL 3.125 MG TABLET PO ×2 (08:06→21:45)
[2022-11-04] MEDS: ENOXAPARIN 40 MG/0.4 ML SYRINGE SUB-Q (08:06)
[2022-11-04] MEDS: SPIRONOLACTONE 25 MG TABLET PO (08:07)
[2022-11-04] MEDS: FUROSEMIDE 40 MG TABLET PO ×2 (08:07→16:13)
[2022-11-04] MEDS: LOSARTAN POTASSIUM 25 MG TABLET PO (08:07)
[2022-11-04] MEDS: ALBUTEROL SULFATE (*SP) AEROSOL 1 PUFF 2 PUFF INHALATION ×3 (09:16→21:00)
--- NOTE | 2022-11-04 09:48 | PM.PNCARD ---
Progress Note: A&P Assessment and Plan (1) Congestive heart failure: Qualifiers: Heart failure chronicity: acute Heart failure type: unspecified Qualified Code(s): I50.9 - Heart failure, unspecified Code(s): I50.9 - Heart failure, unspecified Status: Acute Assessment and Plan: 36-year-old male with no known prior cardiac history; history of tobacco abuse. Patient admitted to hospital with about 2 week history of worsening shortness of breath associated with lower extremity swelling, PND and orthopnea. Clinical presentation consistent with congestive heart failure. -echocardiogram with Doppler showed reduced LVSF, EF 25 - 30%. -Will shift losartan to Entresto -Will also add jardiance -Continue coreg -Continue spironolactone -Continue p.o. furosemide 40mg b.i.d. -Discussed the concept of a LifeVest with him, he would like to proceed with this. Order placed. (2) Elevated blood pressure reading: Code(s): R03.0 - Elevated blood-pressure reading, without diagnosis of hypertension Status: Acute Assessment and Plan: Blood pressure elevated at presentation, likely has previously unknown and untreated hypertension. Management as above. Subjective Date/time seen: 11/04/22 09:48 Cardiology follow up for CHF, HFrEF Interval history: Continues to feel well today. No shortness of breath, chest pain, palpitations. No edema. Exam Const: General: comfortable, no acute distress, alert and awake Orientation/consciousness: patient oriented x3 HENMT: Head: normal to inspection Eyes: General: appearance normal, both eyes and all related structures Pupils: Equal, round and reactive pupils present Neck: Neck: normal visual inspection, supple and no JVD Carotids: normal carotid upstroke Resp: Effort & Inspection: normal respiratory effort Auscultation: clear to auscultation bilaterally Cardio: Rate: regular rate Rhythm: regular rhythm Heart sounds: S1 normal heart sound present, S2 normal heart sound present and no murmurs GI: Auscultation: normal bowel sounds Skin: General skin exam: normal color Neuro: General: patient oriented x3 Cranial nerves: Yes Equal, round and reactive pupils present Extrem: General: normal to inspection Psych: Appearance: grossly normal Mental Status: mental status grossly normal Objective Data Vital Signs Vital Signs: Vital Signs - 24 hr 11/03/22 10:15 11/03/22 14:05 11/03/22 12:00 Temperature 36.6 C Pulse Rate 102 H 97 110 H Respiratory Rate 18 Blood Pressure 114/75 Pulse Oximetry 96 97 Oxygen Delivery Room Air Fraction of Inspired Oxygen 11/03/22 16:00 11/03/22 20:44 11/03/22 20:00 Temperature Pulse Rate 104 H 103 H Respiratory Rate Blood Pressure Pulse Oximetry Oxygen Delivery Room Air Fraction of Inspired Oxygen 11/03/22 22:09 11/03/22 20:10 11/03/22 20:00 Temperature 36.7 C Pulse Rate 102 H 102 H 111 H Respiratory Rate 18 Blood Pressure 121/83 Pulse Oximetry 97 98 Oxygen Delivery Room Air Fraction of Inspired Oxygen 11/04/22 00:00 11/04/22 04:00 11/04/22 05:47 Temperature 36.5 C Pulse Rate 91 95 93 Respiratory Rate 21 H Blood Pressure 119/84 Pulse Oximetry 100 Oxygen Delivery Fraction of Inspired Oxygen 11/04/22 08:06 11/04/22 08:05 11/04/22 08:05 Temperature Pulse Rate 96 96 96 Respiratory Rate Blood Pressure 116/73 Pulse Oximetry 100 100 Oxygen Delivery Room Air Fraction of Inspired Oxygen 11/04/22 09:16 Temperature Pulse Rate 97 Respiratory Rate 18 Blood Pressure Pulse Oximetry Oxygen Delivery Fraction of Inspired Oxygen Intake/Output Intake/Output: Intake & Output 11/01/22 11/02/22 11/03/22 11/04/22 23:59 23:59 23:59 23:59 Intake Total 2240 2034 740 Output Total 1900 0917 584 6882 Balance -0397 844 0211 -360 Meds/Results Medications: Active Medications Generic Name Dose Route Star
--- NOTE | 2022-11-04 17:23 | PM.IMPN ---
Progress Note: A&P Assessment and Plan (1) Congestive heart failure: Qualifiers: Heart failure chronicity: acute Heart failure type: unspecified Qualified Code(s): I50.9 - Heart failure, unspecified Code(s): I50.9 - Heart failure, unspecified Status: Acute Assessment and Plan: BNP 4070 on admission. CXR c/w pulmonary edema Lasix IV with good diuresis. Echo showing EF 15-30% and diastolic dysfunction, mild-mod MR and moderate pulmonary HTN. Patient with acute systolic and diastolic CHF Exacerabation. switched to oral Lasix 40 mg b.i.d.. Meds being adjusted: On Coreg, Spironolactone, Empagliflozin, Entresto and Lasix Plan for life vest home once life vest is arranged. (2) Elevated blood pressure reading: Code(s): R03.0 - Elevated blood-pressure reading, without diagnosis of hypertension Status: Acute Assessment and Plan: BP 149/101 on admission. Patient unaware that he had hagh BP. Overall blood pressures have improved. Continue to monitor (3) Elevated liver enzymes: Code(s): R74.8 - Abnormal levels of other serum enzymes Status: Acute Assessment and Plan: AST/ALT elevated on admission. CTA chest showing suggestion of mild wall thickening of the GB Patient is asymptomatic and has no hyperbilirubinemia. Levels are trending downward. Related to hepatic congestion? Will repeat labs in a.m. with a hepatitis panel Also check RUQ US Subjective Date/time seen: 11/04/22 17:23 Interval history: 36yo healthy male presentw with SOB. Assuming care. Chart reviewed. Shortness of breath is better. No chest pain. He has been up walking in the room Exam Narrative: AF 97.6 113/74 96 16 99% ra Gen - NARD sitting up in a chair Chest - CTA bilaterally, nml RR CV - RRR S1/S2. PMI midclavicular. telemetry showing occasional PVCs. Abd - Soft, NT/ND, Positive BS Ext - No pedal edema Neuro - Alert and oriented. Nonfocal exam. Psych - Nml mood and affect Skin - Warm and dry Objective Data Vital Signs Vital Signs: Vital Signs - 24 hr 11/03/22 20:44 11/03/22 20:00 11/03/22 22:09 Temperature 98.0 F Pulse Rate 103 H 102 H Respiratory Rate 18 Blood Pressure 121/83 Pulse Oximetry 97 Oxygen Delivery Room Air Fraction of Inspired Oxygen 11/03/22 20:10 11/03/22 20:00 11/04/22 00:00 Temperature Pulse Rate 102 H 111 H 91 Respiratory Rate Blood Pressure Pulse Oximetry 98 Oxygen Delivery Room Air Fraction of Inspired Oxygen 21 11/04/22 04:00 11/04/22 05:47 11/04/22 08:06 Temperature 97.7 F Pulse Rate 95 93 96 Respiratory Rate 21 H Blood Pressure 119/84 Pulse Oximetry 100 Oxygen Delivery Fraction of Inspired Oxygen 11/04/22 08:05 11/04/22 08:05 11/04/22 09:16 Temperature Pulse Rate 96 96 97 Respiratory Rate 18 Blood Pressure 116/73 Pulse Oximetry 100 100 Oxygen Delivery Room Air Fraction of Inspired Oxygen 11/04/22 08:00 11/04/22 12:00 11/04/22 14:00 Temperature 97.6 F Pulse Rate 102 H 103 H 91 Respiratory Rate 20 Blood Pressure 113/74 Pulse Oximetry 99 Oxygen Delivery Fraction of Inspired Oxygen 11/04/22 16:04 Temperature Pulse Rate 96 Respiratory Rate 16 Blood Pressure Pulse Oximetry Oxygen Delivery Fraction of Inspired Oxygen Intake/Output Intake/Output: Intake & Output 11/01/22 11/02/22 11/03/22 11/04/22 23:59 23:59 23:59 23:59 Intake Total 2240 2034 980 Output Total 1900 0032 500 9427 Balance -1649 721 3235 -120 Meds/Results Medications: Active Medications Generic Name Dose Route Start Last Admin Trade Name Freq PRN Reason Stop Dose Admin Acetaminophen 650 mg 11/02/22 11:32 Acetaminophen 325 Mg Tablet PO Q4H PRN Headache Hydrocodone Bitart/Acetaminophen 1 tab 11/02/22 11:32 Hydrocodone/Acetaminophen (*Crx) 5-325 Mg Tablet PO Q6H PRN Pain Rated 7-10
[2022-11-04] MEDS: SACUBITRIL/VALSARTAN 24-26 MG TABLET 1 TAB PO (21:45)
[2022-11-05] VITALS (8 sets, daily range): BP systolic 112; BP diastolic 71; PULSE 93–110; RESP 16–20; TEMP 36.9; O2SAT 97
[2022-11-05 05:41] LABS: Alanine Aminotransferase 139 U/L (6-50); Albumin Level 3.6 g/dL (3.5-5.1); Alkaline Phosphatase 47 U/L (38-126); Anion Gap 5 mmol/L (8-16); Aspartate Amino Transferase 42 U/L (17-59); Bilirubin,Total 0.9 mg/dL (0.2-1.3); Blood Urea Nitrogen 12 mg/dL (9-20); Calcium 7.9 mg/dL (8.4-10.2); Carbon Dioxide 27 mmol/L (22-30); Chloride 104 mmol/L (98-107); Estimated CRCL calculation 99 ml/min; Estimated Glomerular Filt Rate > 60; Glucose 91 mg/dL (65-110); Potassium 3.8 mmol/L (3.4-5.0); Sodium 136 mmol/L (137-145)
[2022-11-05 06:30] LABS: Hepatitis B Surface Antigen Negative (Negative)
[2022-11-05 06:36] LABS: HAV RESULT Negative (Negative); Hepatitis B Core IgM Result Negative (Negative)
[2022-11-05 06:47] LABS: Hepatitis C Virus Antibody Negative (Negative)
--- NOTE | 2022-11-05 07:47 | PM.IMPN ---
Progress Note: A&P Assessment and Plan (1) Congestive heart failure: Qualifiers: Heart failure chronicity: acute Heart failure type: unspecified Qualified Code(s): I50.9 - Heart failure, unspecified Code(s): I50.9 - Heart failure, unspecified Status: Acute Assessment and Plan: Echo showing EF 15-30% and diastolic dysfunction, mild-mod MR and moderate pulmonary HTN Euvolemic at this time On all oral meds: Coreg, Spironolactone, Empagliflozin, Entresto and Lasix Plan for life vest, home once life vest is arranged (2) Elevated blood pressure reading: Code(s): R03.0 - Elevated blood-pressure reading, without diagnosis of hypertension Status: Acute Assessment and Plan: New diagnosis, stable (3) Elevated liver enzymes: Code(s): R74.8 - Abnormal levels of other serum enzymes Status: Acute Assessment and Plan: improving, likely hepatic congestions from heart failure exacerbation, f/u RUQ US, hepatitis panel negative Plan DVT prophylaxis with Lovenox GI prophylaxis not indicated Code status full code Subjective Date/time seen: 11/05/22 07:47 Interval history: No overnight events noted. No chest pain or shortness of breath. No nausea, vomiting or diarrhea. No fevers or chills. Review of Systems Review of Systems: 12 point review of systems was assessed and was negative except as noted in the HPI Exam Narrative: General: No acute distress, alert and oriented per baseline HEENT: Atraumatic, normocephalic, mucous membranes moist CV: Regular rate and rhythm, S1, S2 Lungs: Clear to auscultation bilaterally, no rales or crackles noted, no wheezes, good air entry Abdomen: Soft, nontender, nondistended Extremities: Normal to inspection Skin: No rashes noted, no lesions or wounds seen Psych: Euthymic, normal affect Objective Data Vital Signs Vital Signs: Vital Signs - 24 hr 11/04/22 08:06 11/04/22 08:05 11/04/22 08:05 Temperature Pulse Rate 96 96 96 Respiratory Rate Blood Pressure 116/73 Pulse Oximetry 100 100 Oxygen Delivery Room Air 11/04/22 09:16 11/04/22 08:00 11/04/22 12:00 Temperature Pulse Rate 97 102 H 103 H Respiratory Rate 18 Blood Pressure Pulse Oximetry Oxygen Delivery 11/04/22 14:00 11/04/22 16:04 11/04/22 16:00 Temperature 97.6 F Pulse Rate 91 96 106 H Respiratory Rate 20 16 Blood Pressure 113/74 Pulse Oximetry 99 Oxygen Delivery 11/04/22 21:27 11/04/22 21:45 11/04/22 21:00 Temperature 97.9 F Pulse Rate 99 99 102 H Respiratory Rate 18 16 Blood Pressure 118/88 Pulse Oximetry 99 95 Oxygen Delivery Room Air 11/04/22 21:00 11/04/22 21:40 11/04/22 20:00 Temperature Pulse Rate 102 H 101 H Respiratory Rate 16 Blood Pressure Pulse Oximetry Oxygen Delivery Room Air 11/05/22 00:00 11/05/22 04:06 11/05/22 04:00 Temperature 98.5 F Pulse Rate 105 H 93 94 Respiratory Rate 16 Blood Pressure 112/71 Pulse Oximetry 97 Oxygen Delivery Intake/Output Intake/Output: Intake & Output 11/02/22 11/03/22 11/04/22 11/05/22 23:59 23:59 23:59 23:59 Intake Total 2240 2034 2140 400 Output Total 2461 981 8737 700 Balance 889 1134 140 -300 Meds/Results Medications: Active Medications Generic Name Dose Route Start Last Admin Trade Name Freq PRN Reason Stop Dose Admin Acetaminophen 650 mg 11/02/22 11:32 Acetaminophen 325 Mg Tablet PO Q4H PRN Headache Hydrocodone Bitart/Acetaminophen 1 tab 11/02/22 11:32 Hydrocodone/Acetaminophen (*Crx) 5-325 Mg Tablet PO Q6H PRN Pain Rated 7-10 Albuterol 2 puff 11/02/22 14:00 11/05/22 03:36 Albuterol Sulfate (*Sp) Aerosol 1 Puff INHALATION Not Given Q6HRT LEI Carvedilol 3.125 mg 11/02/22 21:00 11/04/22 21:45 Carvedilol 3.125 Mg Tablet PO 3.125 mg Q12HR LIE Administration Empagliflozin 10 mg 11/05/22 09:00 Empaglifloz
--- NOTE | 2022-11-05 09:28 | PM.DS ---
DS: Admitting Diagnosis Discharge Date 11/05/22 Admitting Diagnosis Shortness of breath DS: Discharge Diagnosis Discharge Diagnosis (1) Congestive heart failure: Qualifiers: Heart failure chronicity: acute Heart failure type: unspecified Qualified Code(s): I50.9 - Heart failure, unspecified Code(s): I50.9 - Heart failure, unspecified Status: Acute Assessment and Plan: Echo showing EF 15-30% and diastolic dysfunction, mild-mod MR and moderate pulmonary HTN Euvolemic at this time On all oral meds: Coreg, Spironolactone, Empagliflozin, Entresto and Lasix Plan for life vest, home once life vest is arranged (2) Elevated blood pressure reading: Code(s): R03.0 - Elevated blood-pressure reading, without diagnosis of hypertension Status: Acute Assessment and Plan: New diagnosis, stable (3) Elevated liver enzymes: Code(s): R74.8 - Abnormal levels of other serum enzymes Status: Acute Assessment and Plan: improving, likely hepatic congestions from heart failure exacerbation, f/u RUQ US, hepatitis panel negative Plan DVT prophylaxis with Lovenox GI prophylaxis not indicated Code status full code DS: Summary Hospital Course Hospital Course: 36-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 The patient has been complaining of shortness of breath for at least 2 weeks now.? He stated that he went to an emergency room somewhere in [place] approximately 1 week ago and was given IV Lasix.? He stated that he was told that his lungs were full of fluid the patient has been taking the Lasix as prescribed the patient stated he has not been urinating very much and still continues to feel short of breath.? He has some mild edema to his lower extremities.? He has no history of any lung or cardiac issues.? He does not have a primary care doctor.? The patient stated that when he went to the ER 1 week ago he was not admitted but was given a prescription for Lasix and sent on his way.? He has not had any follow-up since.? Echo was performed showing severely reduced EF of 25-30%, abnormal diastolic function, moderate pulmonary hypertension and some mild valvular disease. He did have an episode of elevated LFTs thought to be secondary to hepatic congestion that improved. Hepatitis panel right upper quadrant ultrasound were negative. Cardiology was consulted and started the patient on Coreg, Entresto, spironolactone and Lasix. A LifeVest was arranged for the patient prior to discharge. Symptoms resolved, he was thought to be euvolemic and discharged in stable condition on the medications discussed in the med rec with close outpatient follow-up by Cardiology. Patient will need further workup by Cardiology to determine the etiology of his acute onset of severe heart failure, concern for underlying viral induced cardiomyopathy. He may need an ischemic workup outpatient as well. Will defer further management to Cardiology. CMP check in 1 week scheduled to check LFTs and monitor creatinine on new meds. Extensive discussion had with patient regarding management and prognosis. Time Spent with Patient Time attestation: Total time spent providing and/or coordinating discharge services: Exam Narrative: General: No acute distress, alert and oriented per baseline HEENT: Atraumatic, normocephalic, mucous membranes moist CV: Regular rate and rhythm, S1, S2 Lungs: Clear to auscultation bilaterally, no rales or crackles noted, no wheezes, good air entry Abdomen: Soft, nontender, nondistended Extremities: Normal to inspection Skin: No rashes noted, no lesions or wounds seen Psych: Euthymic, normal affect DS: Data Data Completed and Pending Labs on day of discharge: Labs from last 24 hours 11/05/22 11/05/22 05:03 05:03 Sodium 136 L Potassium 3.8 Chloride 104 Carbon Dioxide 27 Anion Gap 5 L BUN 12 Creatinine 1.10 Estim Creat Clear Calc 99
[2022-11-05] MEDS: SPIRONOLACTONE 25 MG TABLET PO (09:35)
[2022-11-05] MEDS: EMPAGLIFLOZIN 10 MG TABLET PO (09:35)
[2022-11-05] MEDS: SACUBITRIL/VALSARTAN 24-26 MG TABLET 1 TAB PO (09:35)
[2022-11-05] MEDS: ENOXAPARIN 40 MG/0.4 ML SYRINGE SUB-Q (09:35)
[2022-11-05] MEDS: FUROSEMIDE 40 MG TABLET PO ×2 (09:36→17:17)
[2022-11-05] MEDS: carvediloL 3.125 MG TABLET PO (09:36)
[2022-11-05] MEDS: ALBUTEROL SULFATE (*SP) AEROSOL 1 PUFF 2 PUFF INHALATION (14:29)
== END 2022-11-05 18:44 | disposition home or self-care (01) | DRG 293 ==
LOC: ANHED 13:23 → ANH2MED 18:02
PROVIDERS: Nurse Practitioner; Nurse Practitioner Adult Health; Admitting Provider Internal Medicine; Emergency Provider General Practice; Visit Provider Student in an Organized Health Care Education/Training Program
DX: I50.43 Acute on chronic combined systolic (congestive) and diastolic (congestive) heart failure (principal); R03.0 Elevated blood-pressure reading, without diagnosis of hypertension; R74.8 Abnormal levels of other serum enzymes; Z20.822 Contact with and (suspected) exposure to COVID-19; Z87.891 Personal history of nicotine dependence
CPT/HCPCS: 36415; 71046; 71275; 76705; 80053; 80074; 83735; 83880; 84484; 85025; 85027; 85380; 85610; 85730; 87636; 93005; 93306; 93970; 94640; 96372; 96374; 96376; 99285; A9270; G0378; J1650; J1940; Q9967